=== PATIENT | male | born 1995 | race Caucasian/White ===

== ENCOUNTER 2025-03-14 06:40 | Emergency (ER) | payer SELFPAY ==
[2025-03-14 06:42] VITALS: BP 140/88
--- NOTE | 2025-03-14 07:58 | ED.GENMED ---
History of Present Illness
General
Chief Complaint: Back Pain
Time Seen by Provider: 03/14/25 07:14
History of Present Illness
History of Present Illness:
29-year-old male with prior history of herniated disc of the lumbar back presenting for right sided back pain. Patient reports yesterday he stepped back and felt a twinge in his right back. He has since been having pain radiating down his right
back with difficulty ambulating secondary to pain. Noted pins and needle sensation running down his leg. Denies weakness. Denies bowel or bladder issues. He has been taking lidocaine patches, ibuprofen, Tylenol without significant relief.
Denies any direct trauma to the back or any fall. Denies fever. Denies chest pain or difficulty breathing. Denies additional acute medical complaints
Past History
Past History
ED Past Medical History: None
ED Past Surgical History: None
Social History
Tobacco: Non-smoker
Personal: Single
Living: with family
Employment: Student
Phy Exam
Physical Exam
Physical Exam:
General: Well-appearing, no clinical signs of dehydration, nontoxic and in no acute distress
HEENT: protecting airway
Neck: appears supple
CV: Normal heart rate
Resp: No accessory muscle use, no increased work of breathing
Abd: No distention
Extremities: No deformities, no swelling, no erythema. Reproducible tenderness to the right gluteal region. No overlying skin changes.
Neuro: alert, no focal neurologic deficit. Sensation grossly intact to right lower extremity
: deferred
Rectal: deferred
Psych: Normal affect
Skin: Intact
Course
Orders/Labs/Results
Orders:
Orders
03/14/25 07:35
Cyclobenzaprine HCl [Flexeril] 10 mg PO NOW STA
Ketorolac [Toradol] 15 mg IM NOW STA
Vital Signs
Initial and Last Documented VS:
Initial Vital Signs
Temp Pulse Resp BP Pulse Ox
97.4 F 78 26 140/88 100
03/14/25 06:42 03/14/25 06:42 03/14/25 06:42 03/14/25 06:42 03/14/25 06:42
Last Documented Vital Signs
Temp Pulse Resp BP Pulse Ox
97.4 F 78 26 140/88 100
03/14/25 06:42 03/14/25 06:42 03/14/25 06:42 03/14/25 06:42 03/14/25 06:42
MDM/Problems Addressed
MDM/Problems Addressed:
29-year-old male presenting for right sided back pain. Vital signs on arrival are normal.
On exam, patient is nontoxic, no acute distress. Symptoms appear most consistent with musculoskeletal etiology. Suspected sciatica. Do not suspect any concerning etiology to patient's presenting symptoms. Do not suspect any spinal fracture in
the absence of any direct trauma, and no midline spinal tenderness. No fever, systemic symptoms, or midline tenderness, without concern for spinal abscess or infection. No red flag such as bowel or bladder incontinence, focal weakness, or any
sensory deficits on exam, without present concern for spinal compression. Will treat with Toradol and cyclobenzaprine. Ultimate plan for discharge with outpatient supportive therapy. Will start patient on a steroid pack.
*Critical Care Note
Total Time (30-74mins, 75-104mins- exclusive of procedures): Not Applicable
ED Attending Note
-
Portions of this chart may have been created with voice recognition software.� Occasional wrong word or��sound alike� substitutions may have occurred due to the inherent limitations of voice recognition software.
Discharge Plan
Departure
Patient with high blood pressure during this ER visit?: No
Condition: Good
Prescriptions:
New
methylprednisolone [Medrol (G[facility])] 4 mg tablets,dose pack
See Rx Instructions .ROUTE .COMPLEX Qty: 21 0RF
Rx Instructions:
for 6 days
cyclobenzaprine 10 mg tablet
10 mg PO TID PRN (Reason: muscle spasm) Qty: 15 0RF
ibuprofen 600 mg tablet
600 mg PO Q8H PRN (Reason: Pain) Qty: 20 0RF
No Action
ketorolac 0.5 % drops
1 drp OP QID PRN (Reason: for eye pain and discomfort.) Qty: 15 0RF
ciprofloxacin HCl 500 MG tablet
500 mg PO Q12 Qty: 20 0RF
amoxicillin-pot clavulanate 875 MG/125 MG tablet
1 tab PO Q12 Qty: 20 0RF
amoxicillin-pot clavulanate 875 MG/125 MG tablet
1 tab PO Q12 Qty: 20 0RF
pantoprazole 40 MG tablet,delayed release (DR/EC)
40 mg PO DAILY Qty: 15 0RF
ondansetron 4 MG tablet,disintegrating
4 mg PO TIDPRN PRN (Reason: NAUSEA) Qty: 10 0RF
Interventions
Interventions:
*Risk Screen - Suicide Last Done: 03/14/25 06:42
*Neglect/Abuse Screening Last Done: 03/14/25 06:42
Discharge Date and Time
Print Language: GUINEAN
[2025-03-14] MEDS: FLEXERIL 10 MG PO (08:09)
[2025-03-14] MEDS: TORADOL 15 MG IM (08:09)
[2025-03-14] MEDS: PERCOCET 5/325 1 TABLET PO (09:02)
[2025-03-14 09:05] VITALS: BP 135/67
== END 2025-03-14 09:24 | disposition home or self-care (01) ==
LOC: EMR 06:40
PROVIDERS: EMERGENCY PHYSICIAN Student in an Organized Health Care Education/Training Program
DX: M54.9 Dorsalgia, unspecified (principal)
CPT/HCPCS: 99282; 96372

== ENCOUNTER 2025-05-02 23:51 | Emergency (ER) | payer SELFPAY ==
[2025-05-02 23:53] VITALS: BP 142/82
[2025-05-03 02:18] VITALS: BMI 43.7
--- NOTE | 2025-05-03 02:18 | ED.MUSCINJ ---
HPI-Injury
General
Chief Complaint: Musculo-Skeletal Complaint
Source: patient
Exam Limitations: none
Time Seen by Provider: 05/03/25 01:50
Nursing documentation reviewed up to this point in time: agreed with
History of Present Illness-Injury
Is this injury a work related problem?: No
Is pt an associate of [facility]?: No
Initial Injury comments:
30-year-old male left knee pain and swelling direct trauma yesterday playing softball similar in the past tells me had a hematoma got better on its own did not see an orthopedist no fever no drainage no blood thinners
Past History
Past History
ED Past Medical History: None
ED Past Surgical History: None
Social History
Tobacco: Non-smoker
Alcohol: None
Drug: None
Personal: Single
Living: with family
Employment: Employed
Review of Systems
Review of Systems
All Other Systems: Not applicable
Constitutional: Denies fever or chills
Musculoskeletal: Reports joint pain and joint swelling
Phy Exam
Physical Exam
Physical Exam:
Physical Exam
General: no apparent distress, not acutely ill
Neck: No jaundice
Heart: s1/s2 regular rate and rhythm, no murmur. equal radial pulses.
Lungs: no acute respiratory distress. clear bilaterally
Neuro: alert and oriented. no focal neurological deficits
Skin: no rash
Psychiatric: well kept. interactive and cooperative
Extremities: Left knee large effusion erythema without cellulitic changes over the kneecap pain over the patellar tendon no gross ligamentous laxity
Injury Course
Orders/Labs/Results
Orders:
Orders
05/03/25 02:12
Crutches-Treatment ONCE
Knee Immobilizer Left-Treatmen ONCE
Ibuprofen [Motrin] 600 mg PO NOW STA
05/03/25 23:55
CR Knee - Left 4 Or More View* Urgent
Reason For Exam: FALL
MDM/Problems Addressed
Differential Diagnosis Includes:
Traumatic injury to the knee tibial plateau fracture ligamentous injury tendinous injury no signs of cellulitis
MDM/Problems Addressed:
Knee pain
*Pulse Oximetry
SaO2: 98
Patient hypoxic: no
*Critical Care Note
Total Time (30-74mins, 75-104mins- exclusive of procedures): Not Applicable
Update Note
Update Note:
Update large effusion I did contemplate arthrocentesis for comfort at this point we will hold on that place in immobilizer, nonweightbearing with crutches prescribed pain medication and orthopedic follow-up
ED Attending Note
-
Portions of this chart may have been created with voice recognition software.� Occasional wrong word or��sound alike� substitutions may have occurred due to the inherent limitations of voice recognition software.
Discharge Plan
Departure
Patient Disposition: Home (Routine Discharge)
Date of Disposition: 05/03/25
Time of Disposition: 02:13
Patient with high blood pressure during this ER visit?: No
Condition: Good
Discharge Problem:
Contusion of knee, left
Instructions: How to Use Crutches, Knee Immobilizer (DC), Contusion (DC)
Prescriptions:
New
ibuprofen 600 mg tablet
600 mg PO Q6H PRN (Reason: Pain) Qty: 30 0RF
oxycodone-acetaminophen [Percocet] 5-325 mg tablet
1 tab PO Q4HPRN PRN (Reason: pain) Qty: 10 0RF
No Action
ketorolac 0.5 % drops
1 drp OP QID PRN (Reason: for eye pain and discomfort.) Qty: 15 0RF
ciprofloxacin HCl 500 MG tablet
500 mg PO Q12 Qty: 20 0RF
amoxicillin-pot clavulanate 875 MG/125 MG tablet
1 tab PO Q12 Qty: 20 0RF
amoxicillin-pot clavulanate 875 MG/125 MG tablet
1 tab PO Q12 Qty: 20 0RF
pantoprazole 40 MG tablet,delayed release (DR/EC)
40 mg PO DAILY Qty: 15 0RF
ondansetron 4 MG tablet,disintegrating
4 mg PO TIDPRN PRN (Reason: NAUSEA) Qty: 10 0RF
methylprednisolone [Medrol (Graham)] 4 mg tablets,dose pack
See Rx Instructions .ROUTE .COMPLEX Qty: 21 0RF
Rx Instructions:
for 6 days
cyclobenzaprine 10 mg tablet
10 mg PO TID PRN (Reason: muscle spasm) Qty: 15 0RF
ibuprofen 600 mg tablet
600 mg PO Q8H PRN (Reason: Pain) Qty: 20 0RF
oxycodone-acetaminophen [Percocet] 5-325 mg tablet
1 tab PO Q8H PRN (Reason: Pain) Qty: 6 0RF
Referrals:
Graham oJseph MD [Active, Orthopedics] - Next open appointment
Activity Restrictions/Additional Instructions:
Ice to your knee for the next few days
Antibiotic ointment to your knee
Use immobilizer and crutches
Follow-up with [facility] orthopedics Dr. Joseph or his associates
Interventions
Interventions:
*Risk Screen - Suicide Last Done: 05/02/25 23:53
*General Assessment Last Done: 05/03/25 02:19
*Neglect/Abuse Screening Last Done: 05/02/25 23:53
*ED- Fall Risk Assessment Last Done: 05/03/25 02:19
*ED COVID-19 Vaccine History Last Done: 05/03/25 02:19
ED-Musculoskeletal Assessment Last Done: 05/03/25 02:19
ED-Skin Assessment Last Done: 05/03/25 02:19
Discharge Date and Time
Print Language: SWISS
[2025-05-03] MEDS: MOTRIN 600 MG PO (02:42)
== END 2025-05-03 03:00 | disposition home or self-care (01) ==
LOC: EMR 23:51
PROVIDERS: EMERGENCY PHYSICIAN Emergency Medicine
DX: S80.02XA Contusion of left knee, initial encounter (principal); X58.XXXA Exposure to other specified factors, initial encounter
CPT/HCPCS: 99283; 29505; 73564